=== PATIENT | male | born 1990 | race Caucasian/White ===

== ENCOUNTER → 2017-02-05 | Outpatient (CLI) | payer OTHER ==
[~2017-02-05] MED LIST: METHACHOLINE KIT (J7674) INH ONE
--- NOTE | 2017-02-05 11:17 | PFTRPT ---
Tech: Cindy RAMIREZ RRT Age: 26 Sex: Male Race: Height: 64.00 Inches Weight: 170.00 Lbs BSA: 1.83 Diagnosis: R06.02 METHACHOLINE CHALLENGE REPORT: ORDERING PROVIDER: Michael Pizano MD DATE OF SERVICE: 02/05/17 INTERPRETATION: The study was of excellent technical quality. Under protocol, methacholine was administered. At a dose of 2.5 mg (13.875 CDUs), a 43% decline in the FEV1 was noted. The PC20 of 0.50 is significant. Flow rates returned to baseline post bronchodilator administration. IMPRESSION: Positive methacholine challenge study. MTDD
== END ==
LOC: M CARPUL 10:29
PROVIDERS: ATTEND Internal Medicine Pulmonary Disease
DX: R06.02 Shortness of breath (principal)
CPT/HCPCS: 94070; J7674

== ENCOUNTER 2017-07-07 14:14 | Emergency (ER) | payer OTHER ==
[2017-07-07] MEDS: LORazepam 2 MG/ML VIAL (J2060) IM (15:05)
[2017-07-07] MEDS: KETOROLAC 60 MG/2 ML VIAL (J1885) IM (15:05)
== END 2017-07-07 16:27 | disposition home or self-care (01) ==
LOC: M ED 14:14
DX: S39.012A Strain of muscle, fascia and tendon of lower back, initial encounter (principal); S33.5XXA Sprain of ligaments of lumbar spine, initial encounter; S23.3XXA Sprain of ligaments of thoracic spine, initial encounter; X50.0XXA Overexertion from strenuous movement or load, initial encounter; Y92.9 Unspecified place or not applicable; Y93.9 Activity, unspecified; Y99.1 Military activity
CPT/HCPCS: J1885